=== PATIENT | female | born 1960 | race Caucasian/White ===

== ENCOUNTER 2016-05-08 22:16 | Emergency (ER) | payer OTHER ==
[~2016-05-08] VITALS: Ht 157.5 cm; Wt 122.5 kg
[~2016-05-08 22:16] MED LIST: BENTYL20 MG PO
--- NOTE | 2016-05-08 23:55 | ED GI/GU/ABDOMINAL COMPLAINT ---
History of Present Illness General Chief Complaint: General Adult Stated Complaint: PT VOMITING Source: patient, family, old records Exam Limitations: no limitations Vital Signs & Intake/Output Vital Signs & Intake/Output Vital Signs Date Time Temp Pulse Resp B/P Pulse O2 O2 Flow FiO2 Ox Delivery Rate 05/08 2229 97.0 71 20 98 Room Air ED Intake and Output 05/09 0000 05/08 1200 Intake Total 0 Output Total Balance 0 Intake, Oral 0 Patient 270 lb Weight Allergies Coded Allergies: adhesive tape (RASH 05/08/16) aspirin (UNKNOWN 05/08/16) latex (UNKNOWN 05/08/16) Reconcile Medications Dicyclomine Hydrochloride (Bentyl) 20 MG TAB 1 TAB PO Q6P PRN SPASMS Ondansetron (Zofran Odt) 4 MG TAB.RAPDIS 1 TAB SL TID PRN NAUSEA Pantoprazole Sodium (Protonix) 40 MG TABLET.DR 1 TAB PO BID GASTRITIS Triage Note: PT TO ED C/O +N/V ALL DAY. STATES HAD +DIARRHEA THIS AM, ATE A [employer] PU[employer]/SQU[employer] DINNER AFTER, HAD +N/V 20 MINS AFTER EATING. CRAMPING PAIN RUQ ALL DAY "I THINK IT'S FROM THE VOMITTING" PT HYPERTENSIVE IN TRIAGE , DID NOT TOLERATE BP CUFF WELL Triage Nurses Notes Reviewed? yes ? N Is pt currently ? No HPI: Patient presents with nausea vomiting diarrhea since this morning. The nausea vomiting has been constant. Patient states that she moved her bowels 4 times today. Patient is now again diffuse myalgias which are constant. There are no aggravating or mitigating factors. She rates myalgias as 8 out of 10. Patient states that she has been unable to take any of her pain medication secondary to the vomiting. Patient denies any fevers or chills. Patient states that last week she was sitting at her desk at work when she had a syncopal episode. Patient states that there is no chest pain or palpitations prior to the syncopal episode. Patient states that she did not feel like she was going to pass out prior to this occurring. Patient is due to see her primary care physician in the morning for evaluation of that syncopal episode. Patient also states that with the vomiting she is getting a burning sensation substernally. The burning sensation is worse when she vomits. There is no radiation. She rates it as a 6 out of 10. Past History Travel History Traveled to [place] past 21 day No Medical History Any Pertinent Medical History? 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 No Review of Systems Review of Systems Constitutional: Reports: no symptoms. EENTM: Reports: no symptoms. Respiratory: Reports: no symptoms. Cardiovascular: Reports: see HPI, chest pain. GI: Reports: see HPI, abdominal pain, diarrhea, nausea, vomiting. Genitourinary: Reports: no symptoms. Musculoskeletal: Reports: see HPI, muscle pain. Skin: Reports: no symptoms. Neurological/Psychological: Reports: no symptoms. Hematologic/Endocrine: Reports: no symptoms. Immunologic/Allergic: Reports: no symptoms. All Other Systems: Reviewed and Negative Physical Exam Physical Exam General Appearance: well developed/nourished, alert, awake, anxious, moderate distress Head: atraumatic, normal appearance Eyes: Bilateral: PERRL, EOMI. Ears, Nose, Throat, Mouth: hearing grossly normal, DRY MUCOSA Neck: normal inspection, supple, full range of motion Respiratory: normal breath sounds, chest non-tender, no respiratory distress, lungs clear Cardiovascular: regular rate/rhythm, normal peripheral pulses Gastrointestinal: normal bowel sounds, soft, non-tender, no organomegaly Back: normal inspection, normal range of motion Extremities: normal range of motion Neurologic/Psych: no motor/sensory deficits, awake, alert, oriented x 3, normal gait, normal mood/affect Skin: intact, normal color, warm/dry Core Measures ACS in differential dx? 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 05/09 0010 Active TROPONIN LEVEL 03/07 2354 Complete LIPASE 05/08 2353 Complete COMPREHENSIVE METABOLIC PANEL 05/08 2353 Complete CBC WITHOUT DIFFERENTIAL 05/08 2353 Complete AMYLASE 05/08 2353 Complete EKG 05/08 2353 Active Laboratory Tests 05/09/16 0008: Anion Gap 16, Estimated GFR > 60, BUN/Creatinine Ratio 20.0, Glucose 202 H, Calcium 10.4 H, Total Bilirubin 0.7, AST 26, ALT 32, Alkaline Phosphatase 73, Troponin I < 0.01, Total Protein 8.7 H, Albumin 4.9, Globulin 3.8, Albumin/ Globulin Ratio 1.3, Amylase < 30 L, Lipase 104, CBC w Diff MAN DIFF ORDERED, RBC 6.00 H, MCV 77.0 L, MCH 26.3 L, RDW 13.1, MPV 9.3, Gran % 91.6 H, Lymphocytes % 6.2 L, Monocytes % 1.1 L, Eosinophils % 0, Basophils % 1.1, Absolute Granulocytes 16.4 H, Absolute Lymphocytes 1.1 L, Absolute Monocytes 0.2, Absolute Eosinophils 0, Absolute Basophils 0.2, Platelet Estimate ADEQUATE, Normocytic RBCs VERIFIED, Normochromic RBCs VERIFIED, PUBS MCHC 34.1 Diagnostic Imaging: Viewed by Me: CT Scan. Discussed w/RAD: CT Scan. Radiology Impression: PATIENT: TOM YIN PRESENT AGE: 56 PATIENT ACCOUNT NO: [id number] : 58 LOCATION: [facility] ORDERING PHYSICIAN: SAVI DELEON MD SERVICE DATE: 05/09/16 EXAM TYPE: CAT - CT ABD & PELVIS W IV CONTRAST EXAMINATION: CT ABDOMEN AND PELVIS WITH CONTRAST CLINICAL INFORMATION: Abdominal pain, elevated white blood cell count COMPARISON : 03/12/2013 TECHNIQUE: Multidetector volumetric imaging was performed of the abdomen and pelvis before and after the IV administration of 94 mL of Optiray 320 intravenous contrast. Sagittal and coronal reformatted images were obtained on the technologist's workstation. DLP: 1284.75 mGy-cm FINDINGS: LUNG BASES: The visualized lung bases are unremarkable. LIVER, GALLBLADDER, AND BILIARY TREE: The liver is normal in size, shape, and attenuation. No focal hepatic lesion or biliary ductal dilatation is present. Patient is status post cholecystectomy. PANCREAS: Unremarkable. SPLEEN: Unremarkable. ADRENAL GLANDS: The adrenal glands appear diffusely prominent bilaterally, similar to prior. KIDNEYS AND URETERS: The kidneys are normal in size, shape, and attenuation. There are subcentimeter hypoattenuating lesions in the right kidney, too small to characterize. No hydronephrosis, hydroureter, or calculi seen. No perinephric stranding. BLADDER: Unremarkable. GASTROINTESTINAL TRACT: A small hiatal hernia is noted. Colonic diverticulosis is present. Assessment for associated wall thickening is significantly limited due to luminal decompression. The possibility of a mild diverticulitis at the junction of the descending and sigmoid colon is difficult to entirely exclude, as there is minimal pericolonic stranding in this region. No evidence of bowel obstruction. The appendix is unremarkable. No free fluid or free air is seen. ABDOMINAL WALL: No significant hernia is appreciated. LYMPH NODES: Normal. VASCULAR: There is atherosclerotic calcification along the aorta. PELVIC VISCERA: Unremarkable. OSSEOUS STRUCTURES: Patient is status post L4 S1 fusion. Multilevel endplate osteophytes are present, most prominently in the lower thoracic spine. IMPRESSION: 1. Colonic diverticulosis; the possibility of a mild diverticulitis at the junction of the descending and sigmoid colon is difficult to entirely exclude. 2. Small hiatal hernia. DICTATED BY: BOAZ MEDELLIN MD DATE/TIME DICTATED:05/09/16236 OIL SPECULATOR:CHAD DATE/TIME TRANSCRIBED:05/09/16236 CONFIDENTIAL, DO NOT COPY WITHOUT APPROPRIATE AUTHORIZATION. <Electronically signed in Other Vendor System> SIGNED BY: BOAZ MEDELLIN MD 05/09/16 0251 Initial ED EKG: NSR, no ST T wave changes Prior EKG: unchanged Rhythm Strip: normal sinus rhythm Comments: Patient vomited in the ER and there was coffee-ground material which tested heme positive. Departure Departure Disposition: HOME OR SELF CARE Condition: Stable Clinical Impression Primary Impression: Gastritis Referrals: TOMMY LAWRENCE,ALMAZ Mayes (PCP/Family) Additional Instructions: RETURN IF SYMPTOMS WORSEN OR FOR ANY CONCERNS Departure Forms: Customer Survey General Discharge Information Prescriptions: Current Visit Scripts Pantoprazole Sodium (Protonix) 1 TAB PO BID #28 TAB Ondansetron (Zofran Odt) 1 TAB SL TID PRN NAUSEA #10 TAB
[2016-05-09 00:32] LABS: ABSOLUTE BASOPHIL COUNT 0.2 /CUMM (0.0-0.2); ABSOLUTE EOSINOPHIL COUNT 0 /CUMM (0.0-0.7); ABSOLUTE GRANULOCYTE CT 16.4 /CUMM (1.4-6.5); ABSOLUTE LYMPH COUNT 1.1 /CUMM (1.2-3.4); ABSOLUTE MONOCYTE COUNT 0.2 /CUMM (0.10-0.60); BASOPHIL % 1.1 % (0.0-2.0); EOSINOPHIL % 0 % (0-5); GRANULOCYTE % 91.6 % (42.2-75.2); HEMATOCRIT 46.2 % (37-47); MEAN CORPUSCULAR HGB 26.3 PG (27.0-31.0); MEAN CORPUSCULAR HGB CONC 34.1 G/DL (33.0-37.0); MEAN PLATELET VOLUME 9.3 FL (7.4-10.4); PLATELET COUNT 347 /CUMM (130-400); RBC DISTRIBUTION WIDTH 13.1 % (11.5-14.5); WHITE BLOOD CELL COUNT 17.9 /CUMM (4.8-10.8)
--- NOTE | 2016-05-09 02:51 | CT SCAN REPORT ---
EXAMINATION: CT ABDOMEN AND PELVIS WITH CONTRAST CLINICAL INFORMATION: Abdominal pain, elevated white blood cell count COMPARISON: 03/12/2013 TECHNIQUE: Multidetector volumetric imaging was performed of the abdomen and pelvis before and after the IV administration of 94 mL of Optiray 320 intravenous contrast. Sagittal and coronal reformatted images were obtained on the technologist's workstation. DLP: 1284.75 mGy-cm FINDINGS: LUNG BASES: The visualized lung bases are unremarkable. LIVER, GALLBLADDER, AND BILIARY TREE: The liver is normal in size, shape, and attenuation. No focal hepatic lesion or biliary ductal dilatation is present. Patient is status post cholecystectomy. PANCREAS: Unremarkable. SPLEEN: Unremarkable. ADRENAL GLANDS: The adrenal glands appear diffusely prominent bilaterally, similar to prior. KIDNEYS AND URETERS: The kidneys are normal in size, shape, and attenuation. There are subcentimeter hypoattenuating lesions in the right kidney, too small to characterize. No hydronephrosis, hydroureter, or calculi seen. No perinephric stranding. BLADDER: Unremarkable. GASTROINTESTINAL TRACT: A small hiatal hernia is noted. Colonic diverticulosis is present. Assessment for associated wall thickening is significantly limited due to luminal decompression. The possibility of a mild diverticulitis at the junction of the descending and sigmoid colon is difficult to entirely exclude, as there is minimal pericolonic stranding in this region. No evidence of bowel obstruction. The appendix is unremarkable. No free fluid or free air is seen. ABDOMINAL WALL: No significant hernia is appreciated. LYMPH NODES: Normal. VASCULAR: There is atherosclerotic calcification along the aorta. PELVIC VISCERA: Unremarkable. OSSEOUS STRUCTURES: Patient is status post L4 S1 fusion. Multilevel endplate osteophytes are present, most prominently in the lower thoracic spine. IMPRESSION: 1. Colonic diverticulosis; the possibility of a mild diverticulitis at the junction of the descending and sigmoid colon is difficult to entirely exclude. 2. Small hiatal hernia.
[2016-05-09] MEDS ORDERED: PROTONIX40 M3 PO (04:04)
[2016-05-09] MEDS ORDERED: ZOFRAN ODT4 M1 SL (04:04)
[2016-05-09 04:16] VITALS: BP 180/86
== END 2016-05-09 04:19 ==
LOC: ERH 22:16
PROVIDERS: Emergency Medicine
DX: K29.70 Gastritis, unspecified, without bleeding (principal); M79.1 Myalgia; R55 Syncope and collapse; R07.2 Precordial pain
CPT/HCPCS: 74177; 93005; 93010; 96374; 96375; J2405; J2765